=== PATIENT | male | born 1960 | race Caucasian/White ===

== ENCOUNTER → 2023-08-17 10:38 | Outpatient (REF) | payer OTHER, SELFPAY | LOC: RAD 10:38 | PROVIDERS: ATTENDING PHYSICIAN Nurse Practitioner Family | DX: S22.42XD Multiple fractures of ribs, left side, subsequent encounter for fracture with routine healing (principal); S63.259D Unspecified dislocation of unspecified finger, subsequent encounter | CPT/HCPCS: 71101; 73130 ==

== ENCOUNTER → 2023-09-05 16:20 | Outpatient (REF) | payer OTHER, SELFPAY | LOC: RAD 16:20 | PROVIDERS: ATTENDING PHYSICIAN Nurse Practitioner Family; FAMILY PHYSICIAN Internal Medicine | DX: S22.42XD Multiple fractures of ribs, left side, subsequent encounter for fracture with routine healing (principal) | CPT/HCPCS: 71101 ==

== ENCOUNTER → 2024-01-03 06:32 | Day surgery (SDC) | payer OTHER, SELFPAY | LOC: GI 06:32 | PROVIDERS: ATTENDING PHYSICIAN Specialist | DX: Z12.11 Encounter for screening for malignant neoplasm of colon (principal); Z80.0 Family history of malignant neoplasm of digestive organs; Z86.010 Personal history of colon polyps; D12.3 Benign neoplasm of transverse colon; D12.2 Benign neoplasm of ascending colon; K63.5 Polyp of colon; R12 Heartburn; K21.00 Gastro-esophageal reflux disease with esophagitis, without bleeding; K92.2 Gastrointestinal hemorrhage, unspecified; K31.89 Other diseases of stomach and duodenum | CPT/HCPCS: 45385; 45380; 43239; 88305; 88342 ==

== ENCOUNTER → 2024-08-08 14:12 | Outpatient (REF) | payer OTHER, SELFPAY | LOC: EMG 14:12 | PROVIDERS: ATTENDING PHYSICIAN Internal Medicine | DX: G62.0 Drug-induced polyneuropathy (principal) | CPT/HCPCS: 95886; 95911 ==

== ENCOUNTER 2024-11-03 09:24 | Emergency (ER) | payer SELFPAY ==
[2024-11-03 09:28] VITALS: BP 162/95
--- NOTE | 2024-11-03 09:51 | ED.SKININJ ---
HPI-Injury
General
Chief Complaint: Skin Surface Trauma
Source: patient
Exam Limitations: none
Time Seen by Provider: 11/03/24 09:32
History of Present Illness-Injury
Initial Injury comments:
64-year-old [id number] male presents with laceration to right hand he sustained today. He was reaching under a water fountain at work and cut himself on a piece of metal. Last tetanus unknown. He denies numbness or tingling or loss of
function. No other complaints
Past History
Past History
ED Past Medical History: None
ED Past Surgical History: None
Social History
Personal:
Living: with family
Employment: Employed
Phy Exam
Physical Exam
Physical Exam:
General: Well-appearing male no acute respiratory distress
Skin: 2.5 cm laceration dorsal aspect base of right wrist. No significant bleeding. Mild surrounding swelling. No tendon involvement
Musculoskeletal exam: Good range of motion all fingers right hand
Neurologic: Good sensation all fingers right hand
Course
Orders/Labs/Results
Orders:
Orders
11/03/24 09:51
Tetanus/Diphth/Acelpertussis [Adacel] 0.5 ml IM .ONCE ONE
Vital Signs
Initial and Last Documented VS:
Initial Vital Signs
Temp Pulse Resp Pulse Ox
97.5 F 64 18 99
11/03/24 09:26 11/03/24 09:26 11/03/24 09:26 11/03/24 09:26
Last Documented Vital Signs
Temp Pulse Resp BP Pulse Ox
97.5 F 64 18 162/95 99
11/03/24 09:26 11/03/24 09:26 11/03/24 09:26 11/03/24 09:28 11/03/24 09:26
MDM/Problems Addressed
Differential Diagnosis Includes:
Laceration right hand without tendon or vascular or nerve involvement. The wound was copiously irrigated with saline then anesthetized in a local fashion using 1% lidocaine with epinephrine. The wound was then closed with 5-0 Prolene sutures in a
simple erupted fashion. 5 sutures were required to close the wound to provide hemostasis. Tetanus vaccine updated. A dressing was applied. Stable for discharge
*Critical Care Note
Total Time (30-74mins, 75-104mins- exclusive of procedures): Not Applicable
ED Attending Note
-
Portions of this chart may have been created with voice recognition software.� Occasional wrong word or��sound alike� substitutions may have occurred due to the inherent limitations of voice recognition software.
Discharge Plan
Departure
Patient Disposition: Home (Routine Discharge)
Date of Disposition: 11/03/24
Time of Disposition: 09:53
Patient with high blood pressure during this ER visit?: No
Discharge Problem:
Laceration
Instructions: Laceration Repair With Stitches (DC)
Prescriptions:
No Action
hydrocodone-acetaminophen 5-325 mg tablet
1 tab PO Q4H PRN (Reason: Pain) Qty: 15 0RF
Activity Restrictions/Additional Instructions:
Keep clean. Have sutures removed in 10 to 14 days. Return if needed
Interventions
Interventions:
*Risk Screen - Suicide Last Done: 11/03/24 09:26
*General Assessment Last Done: 11/03/24 09:26
Discharge Date and Time
Print Language: BELARUSIAN
[2024-11-03] MEDS: ADACEL 0.5 ML IM (09:58)
== END 2024-11-03 10:16 | disposition home or self-care (01) ==
LOC: EMR 09:24
PROVIDERS: EMERGENCY PHYSICIAN Emergency Medicine; FAMILY PHYSICIAN Internal Medicine
DX: S61.411A Laceration without foreign body of right hand, initial encounter (principal); W26.8XXA Contact with other sharp object(s), not elsewhere classified, initial encounter; Z23 Encounter for immunization
CPT/HCPCS: 90471; 12001; 99282; 90715